=== PATIENT | female | born 1960 | race Caucasian/White ===

== ENCOUNTER 2021-03-19 05:55 | Inpatient (IN) | payer MEDICAID ==
[2021-03-12 16:36] LABS: BASOPHILS # (AUTO) 0.1 X10'3 (0-0.2); BASOPHILS % (AUTO) 1.1 % (0-1); EOSINOPHILS # (AUTO) 0.3 X10'3 (0-0.9); EOSINOPHILS % (AUTO) 4.2 % (0-6); LYMPHOCYTES # (AUTO) 1.7 X10'3 (1.1-4.8); LYMPHOCYTES % (AUTO) 24.3 % (21-51); MEAN CORPUSCULAR HEMOGLOBIN 30.3 PG (27.0-31.0); MEAN CORPUSCULAR HGB CONC 33.7 g/dL (33.0-36.5); MEAN CORPUSCULAR VOLUME 89.8 FL (78-98); MEAN PLATELET VOLUME 7.9 FL (7.4-10.4); MONOCYTES # (AUTO) 0.6 X10'3 (0-0.9); MONOCYTES % (AUTO) 9.1 % (2-12); NEUTROPHILS # (AUTO) 4.3 X10'3 (1.8-7.7); NEUTROPHILS % (AUTO) 61.3 % (42-75); PRE OP HEMOGLOBIN 13.8 g/dL (12.0-16.0); PRE OP PLATELET COUNT 235 X10'3 (140-440); RED BLOOD COUNT 4.57 X10'6 (4.20-5.60); RED CELL DISTRIBUTION WIDTH 13.9 % (11.5-14.5)
[2021-03-12 16:40] LABS: ALBUMIN 3.8 G/DL (3.4-5.0); ALBUMIN/GLOBULIN RATIO 1.1 (1.1-1.5); ALKALINE PHOSPHATASE 136 IU/L (46-116); BLOOD UREA NITROGEN 20 MG/DL (7-18); BUN/CREATININE RATIO 24.1 (6.6-38.0); CALCIUM 8.9 MG/DL (8.5-10.1); CHLORIDE 108 MMOL/L (99-107); CREATININE 0.83 MG/DL (0.40-0.90); PRE OP ALT 69 U/L (30-65); PRE OP ANION GAP 10 (8-16); PRE OP AST 33 U/L (10-37); PRE OP BILIRUB, TOTAL 0.4 MG/DL (0.0-1.0); PRE OP GLUCOSE 169 MG/DL (70-104); PRE OP POTASSIUM 4.2 MMOL/L (3.4-5.1); PRE OP SODIUM 145 MMOL/L (135-145); TOTAL CARBON DIOXIDE 26.9 MMOL/L (24-32); TOTAL PROTEIN 7.3 G/DL (6.4-8.2); eGFR 70 ML/MIN
[2021-03-12 16:49] LABS: HEMOGLOBIN A1C 6.6 % (4.5-6.2)
[2021-03-19] VITALS (23 sets, daily range): BP systolic 116–160; BP diastolic 65–94
[~2021-03-19] VITALS: Ht 172.7 cm; Wt 146.1 kg
[~2021-03-19 05:55] MED LIST: ALBU18HF2 INH; BECL7.3A7 IH; CYCL-1 PO; DULO-31 PO; DULO30CA52 PO; GABA-530 PO; HYDR12.55 PO; IBUP-1984 PO; MONT-40 PO; MULT-1085 PO; TEMA15CA5 PO; albuterol 2.5 MG/3 ML nebule NEB PRN; ceFAZolin inj. 3,000 MG in normal saline 100ml IV soln 100 ML IV ONE; famotidine 20mg tablet PO ONE; ringers solution, lacted 1,000 ML IV SCH; tranexamic acid 650mg tablet PO ONE; vancomycin 1,500 MG in NS 300ml IV soln IV ONE
[2021-03-19] MEDS ORDERED: MIDAZolam 1 MG/ML 5ML VIAL ONE (11:01)
[2021-03-19] MEDS ORDERED: fentaNYL/PF 50MCG/1 ML 2ML syringe ONE (11:01)
[2021-03-19] MEDS ORDERED: propofol inj 20 ML IV ONE (11:02)
[2021-03-19] MEDS ORDERED: ROPIVAcaine 0.5% (5mg/ml) 30ml vial ONE ×2 (11:02→12:46)
[2021-03-19] MEDS ORDERED: sevoflurane 250ml liquid IH ONE (11:02)
[2021-03-19] MEDS ORDERED: meperidine/PF 25mg/ml syringe IV PRN ×3 (12:55)
[2021-03-19] MEDS ORDERED: ondansetron/PF 4mg/2ml inj IV PRN ×2 (12:55→13:35)
[2021-03-19] MEDS ORDERED: morphine 2 MG/ML inj. syringe IV PRN (12:55)
[2021-03-19] MEDS ORDERED: morphine 4 MG/ML inj SYRINge IV PRN (12:55)
[2021-03-19] MEDS ORDERED: ROPIVAcaine 0.2%/PF PUMP/bolus 545 ML INTERSCALE SCH (12:55)
[2021-03-19] MEDS ORDERED: proCHLORperazine 10 MG/2 ml inj IV PRN (12:55)
[2021-03-19] MEDS ORDERED: ringers solution, lacted 1,000 ML IV SCH (12:55)
[2021-03-19] MEDS ORDERED: ROPIVAcaine 0.2% (10 MG/5 ML) BOLUS INJECTION INTERSCALE PRN (12:55)
[2021-03-19] MEDS ORDERED: rocuronium 10mg/ml inj IV ONE (12:58)
[2021-03-19] MEDS ORDERED: sugammadex 200mg/2ml injection IV ONE (13:16)
--- NOTE | 2021-03-19 13:28 | NUR ---
Received from OR via BED, 20G IV RIGHT AC, LEFT SHOULDER DRSG CDI SHOULDER WRAP IN WITH COLD PACK, SLING, PT RAMSES DENIES PAIN , accompanied by Anesthesiologist DR SANTILLAN and report given by Anesthesiolgist AND LIGHTHOUSE KEEPER. Addendum: 03/19/21 at 1351 by Kelly Meza RN Amended: Links added.
[2021-03-19] MEDS: potassium cl 20mEq in 1/2 NS 1,000 ML IV SCH (13:35)
[2021-03-19] MEDS ORDERED: cyclobenzaprine 10mg tablet PO PRN (13:35)
[2021-03-19] MEDS ORDERED: diphenhydrAMINE 25mg capsule PO PRN ×2 (13:35)
[2021-03-19] MEDS ORDERED: oxyCODONE IR 5mg (immed. release) tablet PO PRN ×2 (13:35)
[2021-03-19] MEDS ORDERED: HYDROmorphone 1 mg/ml syringe IV PRN (13:35)
[2021-03-19] MEDS ORDERED: albuterol 2.5 MG/3 ML nebule NEB PRN (13:35)
[2021-03-19] MEDS ORDERED: magnesium hydroxide 30ml (MOM) UD suspension PO PRN (13:35)
[2021-03-19] MEDS ORDERED: HYDROchlorothiazide 12.5mg capsule PO PRN (13:35)
[2021-03-19] MEDS ORDERED: HYDROmorphone inj. 0.5 MG/0.5 ML DISP.SYRIN IV PRN (13:35)
[2021-03-19] MEDS ORDERED: acetaminophen 325mg tablet PO PRN (13:35)
[2021-03-19] MEDS ORDERED: bisacodyl 10mg suppository rectal RC PRN (13:35)
--- NOTE | 2021-03-19 15:13 | NUR ---
Received patient report via phone from Kelly RN all questions answered. Patient will be transported to the floor and I will assume patient care at that time. Kelly will give patient tylenol as ordered
[2021-03-19] MEDS: acetaminophen 325mg tablet PO SCH ×2 (15:14→20:30)
--- NOTE | 2021-03-19 15:28 | NUR ---
DRESSINGS INTACT. BED LOW, CALL LIGHT PRESENT AND 2 RAILS UP. BJ EDGAR PRESENT TO ACCEPT CARE OF PATIENT HAS MET ALL CRITERIA FOR TRANSFER TO THE SURGICAL FLOOR BED 356B. VSS. PATIENT AND REPORT HAS BEEN CALLED. ALL QUESTIONS ANSWERED TO ACCEPTING RN. Addendum: 03/19/21 at 1539 by Kelly Meza RN Amended: Links added.
[2021-03-19] MEDS ORDERED: gabapentin 100mg capsule PO SCH (16:00)
--- NOTE | 2021-03-19 16:00 | NUR ---
left message for patients sister casey to call back per patient request on her voicemail. Patients nickie phone number [phone]
[2021-03-19] MEDS: ibuprofen tablet 400 MG TABLET PO SCH (17:18)
[2021-03-19] MEDS: ceFAZolin/D5W- 1GM premix 50 ML IV SCH (17:50)
--- NOTE | 2021-03-19 18:08 | NUR ---
Problems reprioritized. Patient report given, questions answered & plan of care reviewed with Michelle LORENZO.
--- NOTE | 2021-03-19 18:30 | NUR ---
Patient in room [facility]. I have received report from RUBÉN and had the opportunity to ask questions and assume patient care.
[2021-03-19] MEDS ORDERED: vancomycin/NS 1 GM ADD-VANTAGE 250 ML IV SCH (20:00)
[2021-03-19] MEDS: budesonide 0.5mg/2ml UD nebule IH SCH (20:10)
[2021-03-19] MEDS: gabapentin 300mg capsule PO SCH (20:31)
[2021-03-19] MEDS ORDERED: temazepam 15mg capsule PO SCH (21:00)
[2021-03-19] MEDS ORDERED: duloxetine 30mg CAPSULE.DR PO SCH (21:00)
[2021-03-19] MEDS ORDERED: sennosides 8.6mg tablet PO SCH (21:00)
[2021-03-20] MEDS: ibuprofen tablet 400 MG TABLET PO SCH ×2 (00:08→08:55)
[2021-03-20] MEDS: ceFAZolin/D5W- 1GM premix 50 ML IV SCH (00:13)
[2021-03-20] MEDS: potassium cl 20mEq in 1/2 NS 1,000 ML IV SCH ×2 (00:13→05:35)
[2021-03-20] MEDS: acetaminophen 325mg tablet PO SCH ×2 (02:25→08:54)
[2021-03-20 04:00] VITALS: BP 115/65
--- NOTE | 2021-03-20 06:18 | NUR ---
Patient in room [facility]. I have received report from Michelle LORENZO and had the opportunity to ask questions and assume patient care
[2021-03-20 06:52] LABS: BASOPHILS % (AUTO) 0.4 % (0-1); EOSINOPHILS # (AUTO) 0.1 X10'3 (0-0.9); EOSINOPHILS % (AUTO) 1.5 % (0-6); HEMATOCRIT 36.3 % (35.0-45.0); HEMOGLOBIN 12.3 g/dl (12.0-16.0); LYMPHOCYTES # (AUTO) 1.3 X10'3 (1.1-4.8); LYMPHOCYTES % (AUTO) 16.8 % (21-51); MEAN CORPUSCULAR HEMOGLOBIN 30.9 PG (27.0-31.0); MEAN CORPUSCULAR HGB CONC 33.9 g/dL (33.0-36.5); MEAN CORPUSCULAR VOLUME 91.1 FL (78-98); MEAN PLATELET VOLUME 8.3 FL (7.4-10.4); MONOCYTES # (AUTO) 1.1 X10'3 (0-0.9); MONOCYTES % (AUTO) 14.7 % (2-12); NEUTROPHILS % (AUTO) 66.6 % (42-75); PLATELET COUNT 190 X10'3 (140-440); RED BLOOD COUNT 3.98 X10'6 (4.20-5.60); RED CELL DISTRIBUTION WIDTH 13.8 % (11.5-14.5); WHITE BLOOD COUNT 7.5 X10'3 (4.5-11.0)
[2021-03-20 07:00] VITALS: BP 125/72
[2021-03-20 07:18] LABS: ANION GAP 9 (8-16); CHLORIDE 109 MMOL/L (99-107); POTASSIUM 3.9 MMOL/L (3.5-5.1); SODIUM 144 MMOL/L (135-145); TOTAL CARBON DIOXIDE 25.9 MMOL/L (24-32)
[2021-03-20] MEDS: budesonide 0.5mg/2ml UD nebule IH SCH (07:35)
[2021-03-20] MEDS ORDERED: multivitamins, therapeutics tablet PO SCH (08:00)
[2021-03-20] MEDS ORDERED: duloxetine 30mg CAPSULE.DR PO SCH (08:00)
[2021-03-20] MEDS ORDERED: montelukast 10mg tablet PO SCH (08:00)
[2021-03-20] MEDS ORDERED: aspirin 325mg tablet PO SCH (08:30)
[2021-03-20] MEDS: gabapentin 300mg capsule PO SCH ×2 (08:54→13:18)
[2021-03-20] MEDS ORDERED: ASPI-1 PO (13:37)
--- NOTE | 2021-03-20 14:24 | NUR ---
Pt s/p reverse left TSA, currently eating well with 75% PO intake on regular diet. Pt pending discharge at this time. Written protein education with RD contact information placed in patient's chart. Will remain available. Addendum: 03/20/21 at [address] Amended: Links added.
--- NOTE | 2021-03-20 15:15 | NUR ---
Discharged patient home. Discharge instructions given to patient, patient verbalized understanding of all instructions given to her. Instructed patient to ensure she has all her belongings with her before leaving the hospital. Peripheral IV catheter removed, tip intact. Patient was sent home with OnQ ball. Patient was given instruction on how to remove OnQ ball, patient verbalized understanding of the instruction including when to call the doctor. Ice pack was sent with the patient upon discharge.
[2021-03-20] MEDS ORDERED: celeCOXIB 100mg capsule PO SCH (20:00)
[2021-03-21] MEDS ORDERED: acetaminophen 325mg tablet PO PRN (13:35)
== END 2021-03-20 15:02 | disposition home or self-care (01) | DRG 322 ==
LOC: PAS IN 05:55 → SUR 3N 15:35
PROVIDERS: ADMIT Orthopaedic Surgery; ATTEND Orthopaedic Surgery
PROC: 0LS40ZZ Reposition Left Upper Arm Tendon, Open Approach (ICD-10-PCS; 2021-03-19)
PROC: 3E0T3BZ Introduction of Anesthetic Agent into Peripheral Nerves and Plexi, Percutaneous Approach (ICD-10-PCS; 2021-03-19)
PROC: 0RRK00Z Replacement of Left Shoulder Joint with Reverse Ball and Socket Synthetic Substitute, Open Approach (ICD-10-PCS; principal; 2021-03-19 11:02)
DX: M19.112 Post-traumatic osteoarthritis, left shoulder (principal); D62 Acute posthemorrhagic anemia; M65.812 Other synovitis and tenosynovitis, left shoulder; M75.22 Bicipital tendinitis, left shoulder; S42.292P Other displaced fracture of upper end of left humerus, subsequent encounter for fracture with malunion; Z79.899 Other long term (current) drug therapy
CPT/HCPCS: 36415; 73020; 80051; 80053; 82948; 83036; 85025; 87081; 94640; 94760; 97110; 97116; 97161; 97530; A4565; A4618; A7000; C1776; C9399; G0378; J0690; J2175; J2250; J2704; J2795; J3010; J3370; J3480; J7040; J7120; J7626; U0003; U0005